=== PATIENT | male | born 1975 | race African-American/Black ===

== ENCOUNTER 2016-05-12 03:38 | Emergency (ER) | payer OTHER ==
[~2016-05-12] VITALS: Ht 177.8 cm; Wt 136.1 kg
[~2016-05-12 03:38] MED LIST: HYDR-971 PO; NAPR550T PO
[2016-05-12 04:24] LABS: BASO % 0 % (0-3); EOS % 4 % (0-3); HEMATOCRIT 39.9 % (39.0-53.0); LYMPH # 1.9 x10^3/uL (1.0-4.8); LYMPH % 43 % (24-48); MEAN CORPUSCULAR HEMOGLOBIN 26 pg (25-35); MEAN CORPUSCULAR HGB CONC 33 g/dL (31-37); MEAN CORPUSCULAR VOLUME 80 fL (79-100); MONO % 11 % (0-9); NEUT % 42 % (31-73); PLATELET COUNT 255 x10^3/uL (140-400); RED BLOOD COUNT 4.97 x10^6/uL (4.30-5.70); RED CELL DISTRIBUTION WIDTH 14.8 % (11.5-14.5); WHITE BLOOD COUNT 4.4 x10^3/uL (4.0-11.0)
[2016-05-12] MEDS ORDERED: IV NORMAL SALINE 1000ML BAG 1,000 ML IV ONE (04:30)
[2016-05-12] MEDS ORDERED: ONDANSETRON PF 4 MG/2 ML VIAL. IV ONE (04:30)
[2016-05-12] MEDS: FENTANYL PF 100 MCG/2 ML VIAL. IV PRN ×4 (04:38→05:33)
[2016-05-12 04:40] LABS: GFR 99.6; POTASSIUM 4.3 mmol/L (3.5-5.1)
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
[2016-05-12 04:46] LABS: ALBUMIN 3.2 g/dL (3.4-5.0); TOTAL BILIRUBIN 0.4 mg/dL (0.2-1.0); TOTAL PROTEIN 6.3 g/dL (6.4-8.2)
[2016-05-12 04:53] LABS: BILIRUBIN,URINE NEGATIVE (NEG); GLUCOSE,URINE NEGATIVE (NEG); NITRITE,URINE NEGATIVE (NEG); PH,URINE 7.5; PROTEIN,URINE NEGATIVE (NEG-TRACE)
[2016-05-12 04:59] LABS: BARBITURATES NEG (NEG); BENZODIAZEPINES NEG (NEG); CANNABINOIDS POS (NEG); COCAINE NEG (NEG); METHADONE NEG (NEG); OPIATES POS (NEG); PHENCYCLIDINE NEG (NEG)
[2016-05-12 05:00] LABS: ETHANOL, URINE NEG (NEG)
[2016-05-12 05:10] LABS: BACTERIA,URINE 0 /HPF (0-FEW); RBC,URINE 0 /HPF (0-2); SQUAMOUS EPITHELIAL CELL,UR OCC /LPF; WBC,URINE 0 /HPF (0-4)
[2016-05-12] MEDS ORDERED: CONTRAST GIVEN MC PRN (05:15)
[2016-05-12] MEDS ORDERED: IOHEXOL 300 MG/ML 75 ML VIAL IV ONE (05:15)
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
[2016-05-12 06:00] VITALS: BP 128/72
[2016-05-12] MEDS ORDERED: NAPROXEN 250 MG TABLET PO ONE (06:15)
[2016-05-12] MEDS ORDERED: CYCLOBENZAPRINE 10 MG TABLET. PO ONE (06:15)
[2016-05-12] MEDS ORDERED: NAPR250T2 PO (06:34)
[2016-05-12] MEDS ORDERED: CYCL10TA2 PO (06:34)
--- NOTE | 2016-05-12 06:39 | EKG ---
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
--- NOTE | 2016-05-12 06:39 | EKG ---
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
--- NOTE | 2016-05-12 07:06 | RAD ---
Chest, 2 views, 05/12/2016: History: Chest pain The heart size and pulmonary vascularity are normal. No pulmonary infiltrates are seen. There is no evidence of pleural fluid. There is minimal spurring in the lower thoracic spine. IMPRESSION: No acute cardiopulmonary abnormality is detected.
== END 2016-05-12 06:42 | disposition home or self-care (01) ==
LOC: ER 04:17
DX: R07.89 Other chest pain (principal); R11.0 Nausea; R35.0 Frequency of micturition; R16.0 Hepatomegaly, not elsewhere classified
CPT/HCPCS: 36415; 71020; 71275; 80053; 81001; 83690; 83880; 84484; 85027; 93005; 96361; 96374; 96375; 96376; 99285; G0481; J2405; J3010; J7030; Q9967

== ENCOUNTER → 2017-01-17 | Outpatient (CLI) | payer OTHER ==
[~2017-01-17] MED LIST changes: +CYCL10TA2 PO; +NAPR-682 PO; +NAPR250T6 PO; -NAPR550T PO
--- NOTE | 2017-01-18 15:41 | SLEEP ---
DATE OF STUDY: 01/17/2017 ATTENDING PHYSICIAN: Dr. Marva Leyva. The patient is 41 years old who weighs 290 pounds with a BMI of 42. The patient's Sanford score was 11. The patient underwent sleep study at [facility] to rule out YOSEPH. This was a diagnostic study. During the night study, the patient spent 410 minutes in bed and slept for 310 minutes with a sleep efficiency of 75%. Sleep latency was 50 minutes with a REM latency of 234 minutes. Overall, sleep architecture showed increased stage I and stage II sleep, normal slow wave and normal REM sleep. During the night study, the patient had 79 obstructive apneas, 10 mixed and 1 central apneas. There were 16 hypopneas. The patient's apnea hypopnea index was 21 per hour. Supine index 33 per hour and a REM index of 21 per hour. PLMS were not seen. EKG monitoring revealed normal sinus rhythm, average heart rate was 75 beats per minute. Review of nocturnal oximetry study revealed a mean oxygen saturation of 98%, with the lowest of 83%. A 5.5% of time, oxygen saturation remained between 80% and 89%. IMPRESSION: 1. Moderate sleep apnea-hypopnea syndrome with worsening during supine sleep. Total AHI 21 per hour, with a supine AHI of 33 per hour. 2. Mild nocturnal hypoxia secondary to obstructive sleep apnea. 3. No clinically significant PLMS. RECOMMENDATIONS: 1. The patient would benefit from a return to the sleep lab for CPAP titration study. 2. Avoid supine sleep. 3. Alternate treatment option would include use of oral appliance. 4. Weight loss is strongly advised. 5. 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 6. Caution regarding driving until symptoms of sleep apnea resolve with the above recommendations. KE CARREON MD DR: LATISHA/figueroa JOB#: [id number] / [id number] MARVA Nunes
== END | disposition home or self-care (01) ==
LOC: SLPLAB 18:20
PROVIDERS: ATTEND Family Medicine
DX: G47.33 Obstructive sleep apnea (adult) (pediatric) (principal)
CPT/HCPCS: 95810

== ENCOUNTER → 2017-03-28 | Outpatient (CLI) | payer OTHER | END | disposition home or self-care (01) | LOC: RT 18:40 | DX: G47.33 Obstructive sleep apnea (adult) (pediatric) (principal) | CPT/HCPCS: 95811 ==

== ENCOUNTER → 2017-11-21 | Outpatient (CLI) | payer OTHER ==
[~2017-11-21] MED LIST changes: +IOHEXOL 240 MG/ML 50ML VIAL. PO ONE; +IOHEXOL 300 MG/ML 100ML VIAL. IV ONE
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
== END | disposition home or self-care (01) ==
LOC: CT 10:37
PROVIDERS: ATTEND Family Medicine
DX: K43.9 Ventral hernia without obstruction or gangrene (principal); G47.33 Obstructive sleep apnea (adult) (pediatric); Z18.89 Other specified retained foreign body fragments; Z87.891 Personal history of nicotine dependence
CPT/HCPCS: 74177; Q9966; Q9967

== ENCOUNTER 2018-05-23 14:17 | Emergency (ER) | payer OTHER ==
[~2018-05-23] VITALS: Ht 177.8 cm; Wt 193.2 kg
[~2018-05-23 14:17] MED LIST changes: +HYDR-3164 PO; -HYDR-971 PO; -IOHEXOL 240 MG/ML 50ML VIAL. PO ONE; -IOHEXOL 300 MG/ML 100ML VIAL. IV ONE
[2018-05-23 15:05] VITALS: BP 138/65
[2018-05-23] MEDS ORDERED: NAPROXEN 500 MG TABLET PO STA (15:17)
[2018-05-23] MEDS ORDERED: HYDROcodone/APAP 5/325MG 1 TAB TABLET PO ONE (15:30)
[2018-05-23] MEDS ORDERED: CYCLOBENZAPRINE 10 MG TABLET. PO ONE (15:30)
--- NOTE | 2018-05-23 15:50 | RAD ---
Indication: Patient fell left-sided upper back pain. TECHNIQUE: 3 views of the [place] spine and 3 views of the lumbar spine COMPARISON: None FINDINGS: Thoracic spine: Thoracic spine is in normal anatomic alignment. No compression deformities. Heart is normal in size. Lungs are clear. Lumbar spine: Lumbar spine is in normal anatomic alignment. No compression deformity. SI joints within normal limits. IMPRESSION: No acute compression deformity seen. Electronically signed by: Maikel Elias DO (05/23/2018 3:47 PM) [facility]
[2018-05-23] MEDS ORDERED: DICL50TA4 PO (16:05)
[2018-05-23] MEDS ORDERED: METH4TAB2 PO (16:05)
[2018-05-23] MEDS ORDERED: CYCL10TA2 PO (16:05)
[2018-05-23] MEDS ORDERED: HYDR-3164 PO (16:05)
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
== END 2018-05-23 16:28 | disposition home or self-care (01) ==
LOC: ER 14:17
DX: S30.0XXA Contusion of lower back and pelvis, initial encounter (principal); S20.222A Contusion of left back wall of thorax, initial encounter; W00.0XXA Fall on same level due to ice and snow, initial encounter; Y93.89 Activity, other specified; Y92.89 Other specified places as the place of occurrence of the external cause; Y99.8 Other external cause status
CPT/HCPCS: 72072; 72100; 99284

== ENCOUNTER 2018-06-06 20:29 | Emergency (ER) | payer OTHER ==
[~2018-06-06] VITALS: Ht 180.3 cm; Wt 181.4 kg
[~2018-06-06 20:29] MED LIST changes: +DICL50TA4 PO; +METH4TAB2 PO
[2018-06-06 20:35] VITALS: BP 141/80
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
[2018-06-06] MEDS ORDERED: KETOROLAC 30 MG/ML VIAL. IM ONE (22:30)
[2018-06-06] MEDS ORDERED: DEXAMETHASONE 4 MG TABLET PO ONE (22:30)
[2018-06-06] MEDS ORDERED: LIDOCAINE (700MG/PATCH) PATCH. TD ONE (22:30)
[2018-06-06] MEDS ORDERED: diazePAM 5 MG TABLET PO ONE (22:30)
[2018-06-06] MEDS ORDERED: oxyCODONE/APAP 5/325 1 TAB TABLET PO ONE (22:30)
[2018-06-06] MEDS ORDERED: LIDO700A39 TP (22:46)
[2018-06-06] MEDS ORDERED: ORPH100T PO (22:46)
[2018-06-06] MEDS ORDERED: PRED20TA PO (22:46)
[2018-06-06] MEDS ORDERED: OXYC1TAB15 PO (22:46)
== END 2018-06-06 23:20 | disposition home or self-care (01) ==
LOC: ER 20:29
DX: M54.5 Low back pain (principal); G89.29 Other chronic pain; G89.11 Acute pain due to trauma; R05 Cough; F17.200 Nicotine dependence, unspecified, uncomplicated; W18.11XA Fall from or off toilet without subsequent striking against object, initial encounter; Y93.89 Activity, other specified; Y92.89 Other specified places as the place of occurrence of the external cause; Y99.8 Other external cause status
CPT/HCPCS: 96372; 99284; J1885; J8540

== ENCOUNTER 2018-10-04 13:34 | Emergency (ER) | payer SELFPAY ==
[~2018-10-04] VITALS: Ht 177.8 cm; Wt 181.4 kg
[~2018-10-04 13:34] MED LIST changes: +LIDO700A21 TP; +ORPH100T PO; +OXYC1TAB15 PO; +PRED20TA PO
[2018-10-04 13:40] VITALS: BP 99/65
[2018-10-04] MEDS ORDERED: PRED50TA PO (14:28)
[2018-10-04] MEDS ORDERED: CYCL10TA2 PO (14:28)
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
== END 2018-10-04 14:40 | disposition home or self-care (01) ==
LOC: ER 13:34
DX: M54.42 Lumbago with sciatica, left side (principal); G89.29 Other chronic pain
CPT/HCPCS: 99283

== ENCOUNTER 2020-02-03 18:33 | Emergency (ER) | payer OTHER ==
[~2020-02-03] VITALS: Ht 177.8 cm; Wt 159.0 kg
[~2020-02-03 18:33] MED LIST changes: +PRED50TA PO
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
--- NOTE | 2020-02-03 19:57 | RAD ---
EXAM: Chest, single view. HISTORY: Cough. COMPARISON: 05/12/2016 FINDINGS: A frontal view of the chest is obtained. There is no infiltrate, pleural effusion or pneumothorax. The heart is normal in size. IMPRESSION: No acute pulmonary finding. Electronically signed by: Jill Hanson MD (02/03/2020 7:53 PM) [facility]
[2020-02-03 21:04] LABS: BASO # 0.1 x10^3/uL (0.0-0.2); BASO % 1 % (0-3); EOS # 0.3 x10^3/uL (0.0-0.7); EOS % 5 % (0-3); HEMATOCRIT 39.2 % (39.0-53.0); HEMOGLOBIN 12.9 g/dL (13.0-17.5); LYMPH # 1.2 x10^3/uL (1.0-4.8); LYMPH % 21 % (24-48); MEAN CORPUSCULAR HEMOGLOBIN 26 pg (25-35); MEAN CORPUSCULAR HGB CONC 33 g/dL (31-37); MEAN CORPUSCULAR VOLUME 78 fL (79-100); MONO # 0.6 x10^3/uL (0.0-1.1); MONO % 11 % (0-9); NEUT # 3.6 x10^3/uL (1.8-7.7); NEUT % 63 % (31-73); PLATELET COUNT 263 x10^3/uL (140-400); RED BLOOD COUNT 5.03 x10^6/uL (4.30-5.70); RED CELL DISTRIBUTION WIDTH 15.3 % (11.5-14.5); WHITE BLOOD COUNT 5.7 x10^3/uL (4.0-11.0)
[2020-02-03 21:12] LABS: CREATININE 0.9 mg/dL (0.7-1.3); GFR 110.9; POTASSIUM 4.3 mmol/L (3.5-5.1)
[2020-02-03 21:17] LABS: ALBUMIN/GLOBULIN RATIO 0.8 (1.0-1.7); TOTAL BILIRUBIN 0.6 mg/dL (0.2-1.0); TOTAL PROTEIN 6.8 g/dL (6.4-8.2)
[2020-02-03 21:19] LABS: INFLUENZA A PATIENT NEGATIVE (NEGATIVE); INFLUENZA B PATIENT NEGATIVE (NEGATIVE)
[2020-02-03 22:00] VITALS: BP 147/75
--- NOTE | 2020-02-04 10:05 | EKG ---
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
--- NOTE | 2020-02-06 10:17 | NUR ---
IP: Informed pt of negative COVID test. Pt verbalized understanding.
== END 2020-02-03 22:50 | disposition home or self-care (01) ==
LOC: ER 18:33
DX: R07.89 Other chest pain (principal); Z20.828 Contact with and (suspected) exposure to other viral communicable diseases; R05 Cough; G47.30 Sleep apnea, unspecified; R06.02 Shortness of breath; R60.0 Localized edema; F17.200 Nicotine dependence, unspecified, uncomplicated; E66.01 Morbid (severe) obesity due to excess calories; Z98.890 Other specified postprocedural states; Z68.43 Body mass index [BMI] 50.0-59.9, adult
CPT/HCPCS: 36415; 71045; 80053; 83690; 84484; 85025; 87804; 93005; 99285; C9803; U0003